=== PATIENT | male | born 1970 | race Caucasian/White ===

== ENCOUNTER 2020-05-28 17:34 | Emergency (ER) | payer OTHER, BC, SELFPAY ==
--- NOTE | ~2020-05-28 | CT_ITS ---
EXAMINATION: CT abdomen pelvis w con EXAM DATE: 05/28/2020 19:18 INDICATION: Nausea vomiting and diarrhea. TECHNIQUE: Spiral CT of the abdomen and pelvis was performed following intravenous injection of 100 m L Omnipaque 350. Axial, coronal and sagittal images were reviewed. The dose-length product (DLP) fo r this examination was 1640.21 mGy-cm. The exposure was tailored according to patient size (auto mA exposure control), and iterative reconstruction (ASIR) was used as additional dose reduction techniqu e. There is no prior study for comparison. FINDINGS: There are scattered mesenteric lymph nodes which are upper limits of normal in size, with m isty mesentery appearance. Could be mesenteric adenitis. Mesenteric vasculature enhances normally. Th e liver, spleen, adrenal glands and pancreas are unremarkable. Gallbladder is unremarkable. No bili jay obstruction. Portal and splenic veins are patent. Kidneys enhance symmetrically. There is no h ydronephrosis. The prostate is unremarkable. The bladder is unremarkable. There is no retroperito arpita or pelvic lymphadenopathy. There is colonic fluid. There appears to be well-defined soft tissue density sitting within the middl e of this colonic fluid in the cecum measuring about 4 cm in diameter. This could be a large colonic polyp. Recommend colonoscopy. There are surgical changes consistent with appendectomy. There is sma ll sliding gastroesophageal hiatal hernia. No free intraperitoneal gas. The heart is normal in si ze. There are no pericardial or pleural effusions. The lung bases are unremarkable. There are no o steoblastic or osteolytic lesions identified. Chronic bilateral L5 spondylolysis without spondylolist hesis. IMPRESSION: 1. Suspicion of 4 cm ascending colonic intraluminal polyp/mass. Recommend follow-up colonoscopy. 2. Possible mesenteric adenitis. 3. Colonic fluid. Enteritis? 4. Small hiatal hernia. Reviewed, dictated and finalized at location A. IMPRESSION: 1. Suspicion of 4 cm ascending colonic intraluminal polyp/mass. Recommend foll ow-up colonoscopy. 2. Possible mesenteric adenitis. 3. Colonic fluid. Enteritis? 4. Small hiatal hernia.
[2020-05-28 17:37] VITALS: BP 131/92; PULSE 86; RESP 16; TEMP 36.8; O2SAT 98
[2020-05-28 17:56] VITALS: BP 154/93; PULSE 82; RESP 20; O2SAT 95
[2020-05-28 18:08] VITALS: BP 146/91; PULSE 87; RESP 21; O2SAT 96
--- NOTE | 2020-05-28 18:08 | PC.NURSE ---
MYRA Araujo at bedside for assessment.
--- NOTE | 2020-05-28 18:22 | ED.NAVMDI ---
HPI - Nausea/Vomiting/Diarrhea General Chief complaint: Nausea/Vomiting/Diarrhea Stated complaint: N/V/D X2D Time Seen by Provider: 05/28/20 18:00 Source: patient Mode of arrival: ambulatory Limitations: no limitations History of Present Illness HPI Narrative: Lower abdominal pain, nausea, and diarrhea since Thursday. The pain was moderate intensity. It has improved somewhat. The diarrhea is watery. He vomitied a few times initially. Nausea has improved, but he feels like every time he drinks anything he has a bowel movement. Similar episode a few years ago resolved with antibiotics. Related Data Home Medications Medication Instructions Recorded Confirmed amlodipine 05/28/20 lisinopril-hydrochlorothiazide tablet 05/28/20 Allergies Allergy/AdvReac Type Severity Reaction Status Date / Time No Known Allergies Allergy Verified 05/28/20 17:53 Review of Systems Review of Systems: All systems reviewed & are unremarkable except as noted in HPI and below Constitutional: Constitutional: Reports fever(s) Eyes: Eyes: Denies change in vision ENT: Denies dizziness Cardiovascular: Cardiovascular: Denies chest pain Respiratory: Respiratory: Denies dyspnea Gastrointestinal: Gastrointestinal: Reports abdominal pain, Reports diarrhea, Reports nausea and Reports vomiting Genitourinary: Genitourinary: Denies dysuria Musculoskeletal: Musculoskeletal: Denies numbness Neurologic: Denies dizziness [facility] Past Medical History Medical History (Updated 05/28/20 @ 19:59 by Ricky Araujo MD) HTN (hypertension) Social History Social History Gender identity (if verbalized by the patient): Male Exam Const: General: healthy appearing, no acute distress and alert Orientation/consciousness: patient oriented x3 HENMT: Head: normal to inspection Neck: Neck: normal visual inspection and no lymphadenopathy Chest: Chest palpation & inspection: no tenderness Resp: Effort & Inspection: normal respiratory effort Auscultation: clear to auscultation bilaterally, no rales, no rhonchi and no wheezes Cardio: Jugular venous distension: no JVD Rate: regular rate Rhythm: regular rhythm Heart sounds: no murmurs GI: Inspection: non-distended GI Palp: Yes Soft to palpation and Yes Tenderness to palpation present (GI) (mild lower) Skin: General skin exam: normal color Neuro: General: patient oriented x3 and moves all extremities Speech: normal speech Extrem: General: no edema Psych: Appearance: well kempt Affect: normal affect Course Vital Signs Vital signs: Vital Signs Temperature 36.8 C 05/28/20 17:37 Pulse Rate 86 05/28/20 17:37 Respiratory Rate 16 05/28/20 17:37 Blood Pressure 131/92 H 05/28/20 17:37 Pulse Oximetry 98 05/28/20 17:37 Temperature 36.8 C 05/28/20 17:37 Pulse Rate 86 05/28/20 21:01 Respiratory Rate 23 H 05/28/20 21:01 Blood Pressure 169/100 H 05/28/20 21:01 Pulse Oximetry 97 05/28/20 21:01 MDM - Nausea/Vomiting/Diarrhea Medical Records Attestation: I reviewed the patient's medical records. Lab Data Attestation: I reviewed the patient's lab results. Result diagrams: 05/28/20 18:24 05/28/20 18:24 Labs: Lab Results 05/28/20 05/28/20 Range/Units 18:24 18:24 WBC 6.3 (4.5-10.0) K/mm3 RBC 4.39 L (4.6-6.20) M/mm3 Hgb 14.3 (14.0-18.0) g/dL Hct 39.2 L (42.0-52.0) % MCV 89.3 (80-100) fl MCH 32.6 (26-34) pg MCHC 36.5 H (32-36) g/dl RDW 12.7 (11.5-14.5) % Plt Count 182 (150-375) k/mm3 MPV 10.3 (7.4-10.4) fl Immature Gran % (Auto) Not Reportable Neut % (Auto) Not Reportable Lymph % (Auto) Not Reportable [place] % (Auto) Not Reportable Eos % (Auto) Not Reportable Baso % (Auto) Not Reportable Lymph # (Auto) Not Reportable [place] # (Auto) Not Reportable Eos # (Auto) Not Reportable Baso # (Auto)
[2020-05-28 18:31] LABS: Hematocrit 39.2 % (42.0-52.0); Hemoglobin 14.3 g/dL (14.0-18.0); Mean Corpuscular HGB Conc 36.5 g/dl (32-36); Mean Corpuscular Hemoglobin 32.6 pg (26-34); Mean Corpuscular Volume 89.3 fl (80-100); Mean Platelet Volume 10.3 fl (7.4-10.4); Platelet Count Result 182 k/mm3 (150-375); Red Blood Count 4.39 M/mm3 (4.6-6.20); Red Cell Distribution Width 12.7 % (11.5-14.5); White Blood Count 6.3 K/mm3 (4.5-10.0)
[2020-05-28 18:43] VITALS: BP 150/98; PULSE 81; RESP 19; O2SAT 95
[2020-05-28] MEDS: SODIUM CHLORIDE 0.9% IV 1,000 ML 999 ML IV CONT (18:43)
[2020-05-28 18:49] LABS: Alanine Aminotransferase 37 U/L (4-50); Albumin Level 4.2 g/dL (3.5-5.1); Alkaline Phosphatase 67 U/L (38-126); Anion Gap 14.3 mmol/L (7-16); Aspartate Amino Transferase 37 U/L (17-59); Bilirubin,Total 1.5 mg/dL (0.2-1.3); Blood Urea Nitrogen 17 mg/dL (9-20); Calcium 8.6 mg/dL (8.4-10.2); Carbon Dioxide 24 mmol/L (22-30); Chloride 97 mmol/L (98-107); Estimated CRCL calculation 98 ml/min; Estimated Glomerular Filt Rate > 60; Glucose 114 mg/dL (75-110); Lipase 49 U/L (23-300); Potassium 3.3 mmol/L (3.4-5.0); Sodium 132 mmol/L (137-145)
[2020-05-28 18:54] LABS: Band Neutrophils Percent 12 % (0-6); Lymphocytes Absolute Manual 1.32 K/mm3 (1.1-4.5); Monocytes Absolute Manual 0.69 K/mm3 (0.1-0.90); Monocytes Percent Manual 11 % (3-9); Neutrophils Absolute Manual 4.28 K/mm3 (1.3-6.7); Neutrophils Percent Manual 56 % (46-73); Platelet Estimate Adequate (Adequate); Total Cells Counted 100
[2020-05-28] MEDS: CIPROFLOXACIN 500 MG TAB PO (20:39)
[2020-05-28 21:01] VITALS: BP 169/100; PULSE 86; RESP 23; O2SAT 97
== END 2020-05-28 21:03 | disposition home or self-care (01) ==
PROVIDERS: Emergency Provider Emergency Medicine; PCP Physician Assistant
DX: K52.9 Noninfective gastroenteritis and colitis, unspecified (principal); R93.5 Abnormal findings on diagnostic imaging of other abdominal regions, including retroperitoneum; K44.9 Diaphragmatic hernia without obstruction or gangrene; I10 Essential (primary) hypertension
CPT/HCPCS: 36415; 74177; 80053; 83690; 85025; 96360; 99284; A9270; J7030; Q9967

== ENCOUNTER 2020-09-13 17:49 | Emergency (ER) | payer BC, SELFPAY ==
--- NOTE | ~2020-09-13 | XR_ITS ---
EXAMINATION: XR femur LT min 2V DATE: 09/13/2020 18:35 INDICATION: Pain above the left knee post trauma TECHNIQUE: Overlapping proximal and distal, AP and lateral views of the left femur were obtained. COMPARISON: None FINDINGS: Alignment is normal. No fracture. Left hip and knee joint spaces are normal. No knee joint effusion. Small enthesophyte at the proximal pole of the patella. 11 x 5 mm corticated heterotopic ossicle pro jecting over the distal quadriceps tendon approximately 3 cm from the patella. Mild prepatellar soft tissue swelling. IMPRESSION: 1. No left knee joint effusion or acute osseous abnormality. 2. Small heterotopic ossicle projecting over the distal quadriceps at a greater distance from the pat ellar insertion than typical for enthesopathic ossification which suggests either sequela of prior tr auma or potentially the quadriceps tendon avulsion with proximal retraction of a previously more dist al enthesopathic ossicle. Correlate with clinical history and for pain/weakness with extension. Reviewed, dictated and finalized at location . [employer] IMPRESSION: 1. No left knee joint effusion or acute osseous abnormality. 2. Small heterotopic ossicle projecting over the distal quadriceps at a greater distance from the patellar insertion than typical for enthesopathic ossificati on which suggests either sequela of prior trauma or potentially the quadriceps tendon avulsion with proximal retraction of a previously more distal enthesopat hic ossicle. Correlate with clinical history and for pain/weakness with extensi on.
[2020-09-13 18:01] VITALS: BP 150/66; PULSE 69; RESP 18; TEMP 36.3; O2SAT 99
--- NOTE | 2020-09-13 19:00 | ED.GENADULT ---
HPI - General Adult General Chief complaint: Extremity Injury, Lower Stated complaint: left leg pain Time Seen by Provider: 09/13/20 18:31 Source: patient Mode of arrival: ambulatory Limitations: no limitations History of Present Illness HPI narrative: Patient is a 49-year-old male who presents with injury to the left extremity just above the knee. Patient was carrying a couch with his brother when he was struck just above the knee since had moderate aching pain with swelling and tenderness patient denies other injuries or complaints presents per private vehicle has not had anything for pain does not appear to be distressed Related Data Home Medications Medication Instructions Recorded Confirmed amlodipine 05/28/20 lisinopril-hydrochlorothiazide tablet 05/28/20 Allergies Allergy/AdvReac Type Severity Reaction Status Date / Time No Known Allergies Allergy Verified 09/13/20 18:04 Review of Systems Review of Systems: All systems reviewed & are unremarkable except as noted in HPI and below PMFSH Past Medical History Medical History HTN (hypertension) Social History Social History Gender identity (if verbalized by the patient): Male Exam Narrative: Exam Narrative: GENERAL: Well-appearing, well-nourished, and in no acute distress. HEAD: Normocephalic, atraumatic. EYES: PERRLA and EOMI. ENT: Nares clear, no rhinorrhea or epistaxis. Mucous membranes moist. EXTREMITIES: Patient with step off and tenderness just above the knee likely suggesting quadriceps tendon tear/rupture SKIN: Warm, dry, no rash. NEURO: No focal deficits. Alert and oriented x3. Cranial nerves II through XII grossly intact. Neurovascularly intact PSYCH: Normal mood and affect. Course Course Emergency Course: Patient in the room at this time in no distress aware of case findings treatment plan diagnosis agreeing to follow-up with orthopedic surgery Vital Signs Vital signs: Vital Signs Temperature 97.4 F L 09/13/20 18:01 Pulse Rate 69 09/13/20 18:01 Respiratory Rate 18 09/13/20 18: Blood Pressure 150/66 H 09/13/20 18:01 Pulse Oximetry 99 09/13/20 18:01 Temperature 97.4 F L 09/13/20 18:01 Pulse Rate 69 09/13/20 18:01 Respiratory Rate 18 09/13/20 18:01 Blood Pressure 150/66 H 09/13/20 18:01 Pulse Oximetry 99 09/13/20 18:01 Medical Decision Making MDM Narrative Medical decision making narrative: Patients injury or pain is consistent with musculoskeletal etiology. No signs of neurological or vascular compromise on exam. Compartments and tisues are soft without signs of compartment syndrome. Pain is felt appropriate for further evaluation on an outpatient basis. Patient placed in knee immobilizer and on crutches referred to orthopedic surgery Vital Signs Vital Signs: Vital Signs Temperature 97.4 F L 09/13/20 18:01 Pulse Rate 69 09/13/20 18:01 Respiratory Rate 18 09/13/20 18:01 Blood Pressure 150/66 H 09/13/20 18:01 Pulse Oximetry 99 09/13/20 18:01 Temperature 97.4 F L 09/13/20 18:01 Pulse Rate 69 09/13/20 18:01 Respiratory Rate 18 09/13/20 18:01 Blood Pressure 150/66 H 09/13/20 18:01 Pulse Oximetry 99 09/13/20 18:01 Discharge Plan Discharge Clinical Impression: Rupture of quadriceps tendon Patient Disposition: Home, Self-Care Condition: Stable Instructions: Antibiotic Form, Tendon Rupture (ED) Additional Instructions: Wear brace and use crutches. No weight on the affected leg. Ice and elevate extremity. Pain medication as needed and directed. Follow-up with orthopedic surgeon first thing Thursday to set up for reevaluation. Return if symptoms worsen or concerns or any increase in redness swelling pain fever over 100.5 or any loss of feeling or function in the extremity Prescriptions: New hydrocodone-acetaminophen [[place]] 5-325 mg ta
[2020-09-13] MEDS: HYDROcodone/acetaminophen (*CRX) 7.5-325 MG TABLET 1 TAB PO (19:21)
== END 2020-09-13 20:17 | disposition home or self-care (01) ==
PROVIDERS: Emergency Provider Emergency Medicine; PCP Physician Assistant
DX: S76.112A Strain of left quadriceps muscle, fascia and tendon, initial encounter (principal); W22.03XA Walked into furniture, initial encounter; I10 Essential (primary) hypertension
CPT/HCPCS: 73552; 99283; A9270